=== PATIENT | female | born 1945 | race African-American/Black ===

== ENCOUNTER 2018-10-02 18:56 | Emergency (ER) | payer BC, OTHER ==
[~2018-10-02] VITALS: Ht 167.6 cm; Wt 68.0 kg
[2018-10-02] MEDS ORDERED: ONDANSETRON HCL 4MG/2ML INJ IV STA (20:57)
[2018-10-02] MEDS ORDERED: SODIUM CHLORIDE 0.9% 1,000 ML IV ONE (20:57)
[2018-10-02] MEDS ORDERED: ACETAMINOPHEN 325MG TABLET PO STA (20:57)
[2018-10-02 21:22] LABS: HEMATOCRIT. 37.6 % (36.0-48.0); HEMOGLOBIN. 12.9 g/dL (12.0-16.0); MEAN CORPUSCULAR VOLUME 93.4 fL (81.0-99.0); MEAN PLATELET VOLUME 7.4 fl (7.4-10.4); PLATELET 261 x1000/uL (130-400); RED BLOOD CELL COUNT 4.02 mill/uL (4.2-5.4); RED CELL DISTRIBUTION WIDTH 13.7 % (11.6-14.6)
[2018-10-02 21:26] LABS: CHLORIDE 105 mEq/L (98-107)
[2018-10-02 21:44] LABS: PLATELET ESTIMATE NORMAL
[2018-10-02] MEDS ORDERED: CARBIDOPA/LEVODOPA 10/100MG TABLET PO NR (22:45)
[2018-10-03] MEDS ORDERED: METRONIDAZOLE 500 MG PREMIX 100 ML IV ONE
[2018-10-03] MEDS ORDERED: CEFTRIAXONE 1 G PREMIX 50 ML IV ONE
[2018-10-03] MEDS ORDERED: ONDANSETRON HCL 4MG/2ML INJ IV ONE ×2 (00:30→04:15)
[2018-10-03] MEDS: CEFEPIME 1,000 MG in DEXTROSE 5% WATER 50 ML IV SCH ×2 (01:14→04:15)
[2018-10-03 03:40] VITALS: BP 148/70
== END 2018-10-03 05:43 | disposition short-term general hospital (02) ==
LOC: ER 18:56 → CANBEDREQ 10-03 06:33
DX: K85.90 Acute pancreatitis without necrosis or infection, unspecified (principal); K81.9 Cholecystitis, unspecified; R07.89 Other chest pain; M19.90 Unspecified osteoarthritis, unspecified site
CPT/HCPCS: 36415; 71045; 76705; 80053; 83605; 83690; 83880; 84484; 85025; 93005; 96365; 96366; 96368; 96375; 96376; 99285; J0692; J0696; J2405; J3490; J7030; J7060

== ENCOUNTER 2021-06-07 01:44 | Emergency (ER) | payer OTHER ==
[~2021-06-07] VITALS: Ht 165.1 cm; Wt 50.0 kg
[2021-06-07] MEDS ORDERED: ACET650T37 MT (06:56)
[2021-06-07] MEDS ORDERED: HYDROCODONE/ACETAMINOPHEN 10/325MG TABLET PO SCH (07:00)
[2021-06-07 16:30] VITALS: BP 139/77
== END 2021-06-08 16:50 | disposition home or self-care (01) ==
LOC: ER 01:44
DX: R51.9 Headache, unspecified (principal); M54.2 Cervicalgia
CPT/HCPCS: 72141; 73110; 73130; 99285

== ENCOUNTER 2021-06-20 11:47 | Emergency (ER) | payer OTHER ==
[~2021-06-20] VITALS: Ht 149.9 cm; Wt 62.0 kg
[~2021-06-20 11:47] MED LIST: ACET650T37 MT
[2021-06-20] MEDS ORDERED: ONDANSETRON HCL 4MG/2ML INJ IV STA (12:46)
[2021-06-20] MEDS ORDERED: MORPHINE SULFATE 4 MG/ML CPJ (NOT FOR IM USE) IV STA (12:46)
[2021-06-20] MEDS ORDERED: SODIUM CHLORIDE 0.9% 1,000 ML IV ONE (13:00)
[2021-06-20] MEDS ORDERED: MORPHINE SULFATE 4 MG/ML CPJ (NOT FOR IM USE) IV NR (14:51)
[2021-06-20] MEDS ORDERED: ONDANSETRON HCL 4MG/2ML INJ IV NR (14:52)
[2021-06-20 15:32] LABS: HEMATOCRIT. 33.2 % (36.0-48.0); HEMOGLOBIN. 11.3 g/dL (12.0-16.0); MEAN CORPUSCULAR HEMOGLOBIN 32.3 pg (28.0-32.0); MEAN CORPUSCULAR VOLUME 95.2 fL (81.0-99.0); MEAN PLATELET VOLUME 6.8 fl (7.4-10.4); PLATELET 277 x1000/uL (130-400); RED BLOOD CELL COUNT 3.49 mill/uL (4.2-5.4); RED CELL DISTRIBUTION WIDTH 13.4 % (11.6-14.6)
[2021-06-20 15:38] LABS: CHLORIDE 111 mEq/L (98-107)
[2021-06-20 16:38] LABS: PLATELET ESTIMATE NORMAL
[2021-06-20 19:30] VITALS: BP 130/80
== END 2021-06-20 20:00 | disposition short-term general hospital (02) ==
LOC: ER 12:53
DX: S32.592A Other specified fracture of left pubis, initial encounter for closed fracture (principal); M25.552 Pain in left hip; M54.9 Dorsalgia, unspecified; M25.512 Pain in left shoulder; M25.562 Pain in left knee; I49.8 Other specified cardiac arrhythmias; G20 Parkinson's disease; W01.198A Fall on same level from slipping, tripping and stumbling with subsequent striking against other object, initial encounter; Y93.9 Activity, unspecified; Y92.9 Unspecified place or not applicable; Z88.3 Allergy status to other anti-infective agents; Z88.4 Allergy status to anesthetic agent
CPT/HCPCS: 36415; 71045; 72070; 72100; 73030; 73521; 73560; 80053; 83880; 85025; 93005; 93970; 96361; 96374; 96375; 99285; J2270; J2405; J7030

== ENCOUNTER 2022-02-18 06:25 | Emergency (ER) | payer MEDICARE, OTHER ==
[~2022-02-18] VITALS: Ht 149.9 cm; Wt 58.1 kg
[~2022-02-18 06:25] MED LIST changes: +ACET-3163 MT; -ACET650T37 MT
[2022-02-18] MEDS ORDERED: IOHEXOL-350 100 ML BOTTLE ONE (07:18)
[2022-02-18 09:37] LABS: CLARITY URINE CLEAR (CLEAR); COLOR URINE DARK YELLOW (YELLOW); KETONES URINE TRACE (NEGATIVE); LEUKOCYTE ESTERASE URINE TRACE (NEGATIVE); NITRITE URINE NEGATIVE (NEGATIVE); OCCULT BLOOD URINE NEGATIVE (NEGATIVE); PH URINE 5.5 (4.5-8.0); PROTEIN URINE NEGATIVE (NEGATIVE); SPECIFIC GRAVITY URINE 1.028 (1.005-1.030); UROBILINOGEN URINE 0.2 E.U./dL (0.2-1.0)
[2022-02-18 09:43] LABS: BASOPHILS % 1.3 % (0.0-2.0); EOSINOPHILS % 3.1 % (0.0-5.0); HEMATOCRIT. 31.8 % (36.0-48.0); HEMOGLOBIN. 10.7 g/dL (12.0-16.0); LYMPHOCYTES % 29.6 % (20.0-50.0); MEAN CORPUSCULAR HEMOGLOBIN 33.2 pg (28.0-32.0); MEAN CORPUSCULAR VOLUME 98.5 fL (81.0-99.0); MEAN PLATELET VOLUME 7.4 fl (7.4-10.4); MONOCYTES % 10.3 % (2.0-8.0); NEUTROPHILS % 55.7 % (40.0-76.0); PLATELET 280 x1000/uL (130-400); RED BLOOD CELL COUNT 3.23 mill/uL (4.2-5.4); RED CELL DISTRIBUTION WIDTH 14.7 % (11.6-14.6)
[2022-02-18 09:50] LABS: CHLORIDE 111 mEq/L (98-107)
[2022-02-18 09:55] LABS: *AMPHETAMINES SCREEN URINE NEGATIVE (NEGATIVE); *BARBITURATES SCREEN URINE NEGATIVE (NEGATIVE); *BENZODIAZEPINES SCREEN URINE NEGATIVE (NEGATIVE); *COCAINE SCREEN URINE NEGATIVE (NEGATIVE); CANNABINOID URINE SCREEN NEGATIVE (NEGATIVE); METHADONE URINE SCREEN NEGATIVE (NEGATIVE); OPIATES URINE SCREEN NEGATIVE (NEGATIVE); PHENCYCLIDINE URINE SCREEN NEGATIVE (NEGATIVE)
[2022-02-18 09:57] LABS: ETHANOL BLOOD < 10 mg/dL
[2022-02-18] MEDS ORDERED: ASPIRIN 325MG EC TABLET PO ONE (11:30)
[2022-02-18 13:49] VITALS: BP 136/53
== END 2022-02-18 13:57 | disposition short-term general hospital (02) ==
LOC: ER 06:37 → CANBEDREQ 12:13 → ER 13:57
DX: G45.9 Transient cerebral ischemic attack, unspecified (principal); T74.11XA Adult physical abuse, confirmed, initial encounter; I49.9 Cardiac arrhythmia, unspecified; G20 Parkinson's disease; Z88.3 Allergy status to other anti-infective agents; Z88.4 Allergy status to anesthetic agent; Z88.8 Allergy status to other drugs, medicaments and biological substances; Z20.822 Contact with and (suspected) exposure to COVID-19
CPT/HCPCS: 36415; 70450; 70496; 70498; 71045; 80053; 80305; 80320; 81003; 82962; 85025; 87426; 93005; 99285; C9803; Q9967; G0480